=== PATIENT | female | born 1995 | race Caucasian/White ===

== ENCOUNTER 2016-04-18 12:06 | Observation (INO) | payer OTHER ==
[~2016-04-18] VITALS: Ht 157.5 cm; Wt 53.1 kg
[~2016-04-18 12:06] MED LIST: BUPR150T6 PO; HYDR25TA PO
[2016-04-18 13:07] LABS: BILIRUBIN,URINE NEGATIVE (NEG); GLUCOSE,URINE NEGATIVE (NEG); NITRITE,URINE NEGATIVE (NEG); PROTEIN,URINE NEGATIVE (NEG-TRACE)
[2016-04-18 13:18] LABS: NEG OBC UR NEG; POS OBC UR POS
[2016-04-18 13:22] LABS: BASO % 0 % (0-3); EOS % 0 % (0-3); HEMATOCRIT 40.8 % (36.0-47.0); LYMPH % 8 % (24-48); MEAN CORPUSCULAR HEMOGLOBIN 30 pg (25-35); MEAN CORPUSCULAR HGB CONC 34 g/dL (31-37); MEAN CORPUSCULAR VOLUME 88 fL (79-100); MONO % 3 % (0-9); NEUT % 89 % (31-73); PLATELET COUNT 166 x10^3/uL (140-400); RED BLOOD COUNT 4.62 x10^6/uL (3.50-5.40); WHITE BLOOD COUNT 13.1 x10^3/uL (4.0-11.0)
[2016-04-18] MEDS ORDERED: HYDROMORPHONE 2 MG/ML VIAL. IV PRN (13:30)
[2016-04-18 13:40] LABS: CALCIUM 9.2 mg/dL (8.5-10.1); CREATININE 0.5 mg/dL (0.6-1.0); GFR 157.3
[2016-04-18 13:41] LABS: POTASSIUM 3.4 mmol/L (3.5-5.1)
[2016-04-18 13:44] LABS: ALBUMIN 3.7 g/dL (3.4-5.0); DIRECT BILIRUBIN 0.1 mg/dL (0.0-0.2); TOTAL BILIRUBIN 0.6 mg/dL (0.2-1.0); TOTAL PROTEIN 7.6 g/dL (6.4-8.2)
[2016-04-18 13:44] LABS: BACTERIA,URINE MODERATE /HPF (0-FEW); RBC,URINE 0 /HPF (0-2); SQUAMOUS EPITHELIAL CELL,UR MOD /LPF
[2016-04-18] MEDS ORDERED: ONDANSETRON PF 4 MG/2 ML VIAL. IV ONE (13:45)
[2016-04-18] MEDS ORDERED: IV NORMAL SALINE 1000ML BAG 1,000 ML IV ONE (13:45)
--- NOTE | 2016-04-18 13:55 | RAD ---
Indication abdominal pain associated with . An early obstetrical ultrasound examination was performed. No prior ultrasound imaging is available. There is a single viable IUP. heart rate of 173 was documented. The crown-rump length of 3.7 cm is compatible with a gestational age of 10 weeks 4 days. By sonographic analysis the expected date of confinement is 11/10/2016. There is a small mass seen associated with the measuring maximally approximately 1.8 cm in greatest dimension most compatible with a small subchorionic hemorrhage. Both ovaries are identified and appeared unremarkable. IMPRESSION:: Single viable IUP of approximately 10 weeks 4 days gestation. There is a small subchorionic hemorrhage additionally noted associated with the
[2016-04-18 14:53] LABS: PLT ESTIMATE ADEQUATE (ADEQUATE)
[2016-04-18] MEDS ORDERED: IV NORMAL SALINE 1000ML BAG 1,000 ML IV SCH (14:58)
[2016-04-18] MEDS ORDERED: MORPHINE SULFATE 2 MG/ML DISP.SYRIN. IV PRN (15:00)
[2016-04-18] MEDS ORDERED: ONDANSETRON PF 4 MG/2 ML VIAL. IV PRN (15:00)
--- NOTE | 2016-04-18 16:09 | PHYS DOC ---
Past Medical History Past Medical History: Anxiety, Depression Past Surgical History: No Surgical History Alcohol Use: None Drug Use: None Adult General Chief Complaint Chief Complaint: ABDOMINAL PAIN IN HPI HPI 20 yo 10 wk F presenting to the ED with rlq abd pain for about 24 hours. she reports n/v with this as well. her pain is sharp nonradiating wihtout alleviating factors. she denies vaginal bleeding. she denies diarrhea. ROS neg for chest pain fevers chill or shortness of breath. All other review of systems is negative unless otherwise noted in history of present illness. Review of Systems Review of Systems SEE ABOVE. Current Medications Current Medications Current Medications Medications (Trade) Dose Ordered Sig/Janna Start Time Stop Time Status Last Admin Dose Admin Hydromorphone HCl (Dilaudid) 0.5 mg PRN Q1HR PRN 04/18/16 13:30 04/18/16 14:05 0.5 MG Ondansetron HCl 4 mg 4 mg 1X ONCE 04/18/16 13:45 04/18/16 13:46 DC 04/18/16 14:05 4 MG Sodium Chloride (Iv Sodium Chloride 0.9% 1000ml Bag) 1,000 ml @ 1,000 mls/hr 1X ONCE 04/18/16 13:45 04/18/16 14:44 DC 04/18/16 14:04 1,000 MLS/HR Allergies Allergies Allergies Coded Allergies Type Severity Reaction Last Updated Verified No Known Drug Allergies 05/29/14 No Physical Exam Physical Exam Constitutional: Well developed, well nourished, no acute distress, non-toxic appearance. HENT: Normocephalic, atraumatic, bilateral external ears normal, oropharynx moist, no oral exudates, nose normal. [] Eyes: PERRLA, EOMI, conjunctiva normal, no discharge. Neck: Normal range of motion, no tenderness, supple, no stridor. [] Cardiovascular:Heart rate regular rhythm, no murmur [] Lungs & Thorax: Bilateral breath sounds clear to auscultation [] Abdomen: Abdomen is soft with tenderness in the right lower quadrant. Positive McBurney's point. Negative Petersen sign. Skin: Warm, dry, no erythema, no rash. [] Back: No tenderness, no CVA tenderness. Extremities: No tenderness, no cyanosis, no clubbing, ROM intact, no edema. [] Neurologic: Alert and oriented X 3, normal motor function, normal sensory function, no focal deficits noted. [] Psychologic: Affect normal, judgement normal, mood normal. Current Patient Data Vital Signs Vital Signs Date Time Temp Pulse Resp B/P Pulse Ox O2 Delivery O2 Flow Rate FiO2 04/18/16 14:30 68 96/54 99 Room Air 04/18/16 14:05 22 04/18/16 12:40 97.7 97.7 Lab Values Laboratory Tests Test 04/18/16 12:45 04/18/16 13:05 Urine Collection Type Unknown Urine Color Yellow Urine Clarity Clear Urine pH 7.0 Urine Specific [place] >=1.030 Urine Protein Negativemg/dL (NEG-TRACE) Urine Glucose (UA) Negativemg/dL (NEG) Urine Ketones (Stick) 40mg/dL (NEG) Urine Blood Negative (NEG) Urine Nitrite Negative (NEG) Urine Bilirubin Negative (NEG) Urine Urobilinogen Dipstick 1.0mg/dL (0.2 mg/dL) Urine Leukocyte Esterase Trace (NEG) Urine RBC 0/HPF (0-2) Urine WBC 1-4/HPF (0-4) Urine Squamous Epithelial Cells Mod/LPF Urine Bacteria Moderate/HPF (0-FEW) Urine Mucus Mod/LPF Urine Test Positive (NEG) White Blood Count 13.1x10^3/uL (4.0-11.0) H Red Blood Count 4.62x10^6/uL (3.50-5.40) Hemoglobin 14.0g/dL (12.0-15.5) Hematocrit 40.8% (36.0-47.0) Mean Corpuscular Volume 88fL (79-100) Mean Corpuscular Hemoglobin 30pg (25-35) Mean Corpuscular Hemoglobin Concent 34g/dL (31-37) Red Cell Distribution Width 14.0% (11.5-14.5) Platelet Count 166x10^3/uL (140-400) Neutrophils (%) (Auto) 89% (31-73) H Lymphocytes (%) (Auto) 8% (24-48) L Monocytes (%) (Auto) 3% (0-9) Eosinophils (%) (Auto) 0% (0-3) Basophils (%) (Auto) 0% (0-3) Neutrophils # (Auto) 11.7x10^3uL (1.8-7.7) H Lymphocytes # (Auto) 1.0x10^3/uL (1.0-4.8) Monocytes # (Auto) 0.4x10^3/uL (0.0-1.1) Eosinophils # (Auto) 0.0x10^3/uL (0.0-0.7) Basophils # (Auto) 0.0x10^3/uL (0.0-0.2) Segmented Neutrophils % 89% (35-66) H Lymphocytes % 9% (24-48) L Monocytes % 2% (0-10) Platelet Estimate Adequate (ADEQUATE) Maternal Serum HCG Beta Subunit 06517qIO/mL (0-6) H Sodium Level 139mmol/L (136-145) Potassium Level 3.4mmol/L (3.5-5.1) L Chloride Level 105mmol/L (98-107) Carbon Dioxide Level 21mmol/L (21-32) Anion Gap 13 (6-14) Blood Urea Nitrogen 10mg/dL (7-20) Creatinine 0.5mg/dL (0.6-1.0) L Estimated GFR (Cockcroft-Gault) 157.3 Glucose Level 87mg/dL (70-99) Calcium Level 9.2mg/dL (8.5-10.1) Total Bilirubin 0.6mg/dL (0.2-1.0) Direct Bilirubin 0.1mg/dL (0.0-0.2) Aspartate Amino Transferase (AST) 18U/L (15-37) Alanine Aminotransferase (ALT) 22U/L (14-59) Alkaline Phosphatase 63U/L (46-116) Total Protein 7.6g/dL (6.4-8.2) Albumin 3.7g/dL (3.4-5.0) Lipase 118U/L (73-393) Laboratory Tests 04/18/16 13:05 Laboratory Tests 04/18/16 13:05 EKG EKG [] Radiology/Procedures Radiology/Procedures [] Course & Med Decision Making Course & Med Decision Making Pertinent Labs and Imaging studies reviewed. (See chart for details) [] 20-year-old female presenting to the emergency department approximately 10 weeks with right lower quadrant abdominal pain with nausea and vomiting. On examination the patient's abd was tender concerning for possible appendicitis. I discussed with Dr. Mckeon our OB and Dr. Maher our general surgeon who collectively recommended MRI abd without contrast and the pt was then admitted for Dr. Mckeon's service for further evaluation, workup and care. Dragon Disclaimer Dragon Disclaimer This electronic medical record was generated, in whole or in part, using a voice recognition dictation system. Departure Departure Impression: Primary Impression: Abdominal pain Disposition: ADMITTED INPATIENT Admitting Physician: Other (dr. Mckeon) Condition: STABLE Referrals: NO PCP (PCP) GOOD PRAKASH MD Apr 18, 2016 16:09
--- NOTE | 2016-04-18 16:23 | RAD ---
MR of the abdomen and pelvis without contrast, 04/18/2016: History: , right-sided pain and nausea, possible appendicitis Imaging of the mid abdomen through the pelvis was performed in axial, sagittal and coronal planes utilizing a variety of imaging sequences including T2 weighted and fat-suppressed T2 weighted sequences. The first trimester gravid uterus is visualized centered to the right of midline. No pelvic mass or abnormal fluid collection is seen. The cecum is in normal position in the anterior aspect of the mid to upper pelvis. The appendix is not definitely identified. No dilated appendix or pericecal inflammatory process is seen. No free fluid is evident in the abdomen or pelvis. The kidneys are unremarkable. IMPRESSION: No MR findings to suggest acute appendicitis.
[2016-04-18 17:00] VITALS: BP 92/52
[2016-04-18] MEDS ORDERED: ACETAMINOPHEN 325 MG TABLET. PO PRN (20:30)
[2016-04-18 23:00] VITALS: BP 97/54
[2016-04-19 05:30] VITALS: BP 96/50
[2016-04-19 05:46] LABS: BASO % 0 % (0-3); EOS % 0 % (0-3); HEMATOCRIT 34.1 % (36.0-47.0); HEMOGLOBIN 11.8 g/dL (12.0-15.5); LYMPH # 1.1 x10^3/uL (1.0-4.8); LYMPH % 15 % (24-48); MEAN CORPUSCULAR HEMOGLOBIN 31 pg (25-35); MEAN CORPUSCULAR HGB CONC 35 g/dL (31-37); MEAN CORPUSCULAR VOLUME 89 fL (79-100); MONO % 7 % (0-9); NEUT % 78 % (31-73); PLATELET COUNT 136 x10^3/uL (140-400); RED BLOOD COUNT 3.83 x10^6/uL (3.50-5.40); WHITE BLOOD COUNT 7.3 x10^3/uL (4.0-11.0)
[2016-04-19 06:05] LABS: CALCIUM 8.2 mg/dL (8.5-10.1); CREATININE 0.5 mg/dL (0.6-1.0); GFR 157.3; POTASSIUM 3.6 mmol/L (3.5-5.1)
--- NOTE | 2016-04-19 08:19 | PDOC2 ---
CONSULT Date of Consult Date of Consult DATE: 04/19/16 TIME: 08:14 Reason for Consult Reason for Consult: RLQ abdominal pain Identification/Chief Complaint Chief Complaint RLQ abdominal pain Source Source: Patient History of Present Illness Reason for Visit: 20 yo female admitted to the hospital with severe RLQ abdominal pain for 24 hours. She is 10 weeks preg. This am she is feeling better, no pain or nausea. MRI of the abd did not show any evidence of appendicitis. Past Medical History Cardiovascular: No pertinent hx Pulmonary: No pertinent hx GI: No pertinent hx Heme/Onc: No pertinent hx Hepatobiliary: No pertinent hx Psych: Anxiety, Depression Rheumatologic: No pertinent hx Infectious disease: No pertinent hx ENT: No pertinent hx Renal/: No pertinent hx Endocrine: No pertinent hx Past Surgical History Past Surgical History: No pertinent history Family History Family History: Hypertension Social History No ALCOHOL: occassional Drugs: Crystal meth Lives: with Family Current Problem List Problem List Problems Medical Problems: (1) Abdominal pain Status: Acute Current Medications Current Medications Current Medications Hydromorphone HCl (Dilaudid) 0.5 mg PRN Q1HR PRN IV SEVERE PAIN Last administered on 04/18/16 14:05; Start 04/18/16 at 13:30 Ondansetron HCl 4 mg 4 mg 1X ONCE IV Last administered on 04/18/16 14:05; Start 04/18/16 at 13:45; Stop 04/18/16 at 13:46; Status DC Sodium Chloride (Iv Sodium Chloride 0.9% 1000ml Bag) 1,000 ml @ 1,000 mls/hr 1X ONCE IV Last administered on 04/18/16 14:04; Start 04/18/16 at 13:45; Stop 04/18/16 at 14:44; Status DC Ondansetron HCl (Zofran) 4 mg PRN Q8HRS PRN IV NAUSEA/VOMITING; Start 04/18/16 at 15:00; Stop 04/19/16 at 14:59 Morphine Sulfate 2 mg 2 mg PRN Q2HR PRN IV PAIN; Start 04/18/16 at 15:00; Stop 04/19/16 at 14:59 Sodium Chloride (Iv Sodium Chloride 0.9% 1000ml Bag) 1,000 ml @ 125 mls/hr Q8H IV Last administered on 04/19/16 00:17; Start 04/18/16 at 14:58; Stop 04/19/16 at 14:57 Acetaminophen (Tylenol) 650 mg PRN Q4HRS PRN PO MILD PAIN / TEMP Last administered on 04/18/16t 20:51; Start 04/18/16 at 20:30 Active Scripts Active Reported Bupropion Xl (Bupropion Hcl) 150 Mg Tab.er.24h 1 Tab PO DAILY Allergies Allergies: Coded Allergies: No Known Drug Allergies (Unverified , 05/29/14) Physical Exam General: Alert, Oriented X3, Cooperative, No acute distress HEENT: Atraumatic Lungs: Clear to auscultation, Normal air movement Heart: Regular rate, No murmurs Abdomen: Normal bowel sounds, Soft, No tenderness Extremities: No edema Skin: No significant lesion Neuro: Normal speech Psych/Mental Status: Mental status NL Vitals VITALS Vital Signs Date Time Temp Pulse Resp B/P Pulse Ox O2 Delivery O2 Flow Rate FiO2 04/19/16 05:30 98.8 69 16 96/50 98.8 04/18/16 17:00 Room Air 04/18/16 15:00 97 Labs Labs Laboratory Tests Test 04/18/16 12:45 04/18/16 13:05 04/19/16 05:33 Urine Collection Type Unknown Urine Color Yellow Urine Clarity Clear Urine pH 7.0 Urine Specific [place] >=1.030 Urine Protein Negativemg/dL (NEG-TRACE) Urine Glucose (UA) Negativemg/dL (NEG) Urine Ketones (Stick) 40mg/dL (NEG) Urine Blood Negative (NEG) Urine Nitrite Negative (NEG) Urine Bilirubin Negative (NEG) Urine Urobilinogen Dipstick 1.0mg/dL (0.2 mg/dL) Urine Leukocyte Esterase Trace (NEG) Urine RBC 0/HPF (0-2) Urine WBC 1-4/HPF (0-4) Urine Squamous Epithelial Cells Mod/LPF Urine Bacteria Moderate/HPF (0-FEW) Urine Mucus Mod/LPF Urine Test Positive (NEG) White Blood Count 13.1x10^3/uL (4.0-11.0) 7.3x10^3/uL (4.0-11.0) Red Blood Count 4.62x10^6/uL (3.50-5.40) 3.83x10^6/uL (3.50-5.40) Hemoglobin 14.0g/dL (12.0-15.5) 11.8g/dL (12.0-15.5) Hematocrit 40.8% (36.0-47.0) 34.1% (36.0-47.0) Mean Corpuscular Volume 88fL (79-100) 89fL (79-100) Mean Corpuscular Hemoglobin 30pg (25-35) 31pg (25-35) Mean Corpuscular Hemoglobin Concent 34g/dL (31-37) 35g/dL (31-37) Red Cell Distribution Width 14.0% (11.5-14.5) 14.0% (11.5-14.5) Platelet Count 166x10^3/uL (140-400) 136x10^3/uL (140-400) Neutrophils (%) (Auto) 89% (31-73) 78% (31-73) Lymphocytes (%) (Auto) 8% (24-48) 15% (24-48) Monocytes (%) (Auto) 3% (0-9) 7% (0-9) Eosinophils (%) (Auto) 0% (0-3) 0% (0-3) Basophils (%) (Auto) 0% (0-3) 0% (0-3) Neutrophils # (Auto) 11.7x10^3uL (1.8-7.7) 5.8x10^3uL (1.8-7.7) Lymphocytes # (Auto) 1.0x10^3/uL (1.0-4.8) 1.1x10^3/uL (1.0-4.8) Monocytes # (Auto) 0.4x10^3/uL (0.0-1.1) 0.5x10^3/uL (0.0-1.1) Eosinophils # (Auto) 0.0x10^3/uL (0.0-0.7) 0.0x10^3/uL (0.0-0.7) Basophils # (Auto) 0.0x10^3/uL (0.0-0.2) 0.0x10^3/uL (0.0-0.2) Segmented Neutrophils % 89% (35-66) Lymphocytes % 9% (24-48) Monocytes % 2% (0-10) Platelet Estimate Adequate (ADEQUATE) Maternal Serum HCG Beta Subunit 55324gJA/mL (0-6) Sodium Level 139mmol/L (136-145) 135mmol/L (136-145) Potassium Level 3.4mmol/L (3.5-5.1) 3.6mmol/L (3.5-5.1) Chloride Level 105mmol/L (98-107) 107mmol/L (98-107) Carbon Dioxide Level 21mmol/L (21-32) 20mmol/L (21-32) Anion Gap 13 (6-14) 8 (6-14) Blood Urea Nitrogen 10mg/dL (7-20) 6mg/dL (7-20) Creatinine 0.5mg/dL (0.6-1.0) 0.5mg/dL (0.6-1.0) Estimated GFR (Cockcroft-Gault) 157.3 157.3 Glucose Level 87mg/dL (70-99) 88mg/dL (70-99) Calcium Level 9.2mg/dL (8.5-10.1) 8.2mg/dL (8.5-10.1) Total Bilirubin 0.6mg/dL (0.2-1.0) Direct Bilirubin 0.1mg/dL (0.0-0.2) Aspartate Amino Transf (AST/SGOT) 18U/L (15-37) Alanine Aminotransferase (ALT/SGPT) 22U/L (14-59) Alkaline Phosphatase 63U/L (46-116) Total Protein 7.6g/dL (6.4-8.2) Albumin 3.7g/dL (3.4-5.0) Lipase 118U/L (73-393) Laboratory Tests Test 04/18/16 12:45 04/18/16 13:05 04/19/16 05:33 Urine Collection Type Unknown Urine Color Yellow Urine Clarity Clear Urine pH 7.0 Urine Specific [place] >=1.030 Urine Protein Negativemg/dL (NEG-TRACE) Urine Glucose (UA) Negativemg/dL (NEG) Urine Ketones (Stick) 40mg/dL (NEG) Urine Blood Negative (NEG) Urine Nitrite Negative (NEG) Urine Bilirubin Negative (NEG) Urine Urobilinogen Dipstick 1.0mg/dL (0.2 mg/dL) Urine Leukocyte Esterase Trace (NEG) Urine RBC 0/HPF (0-2) Urine WBC 1-4/HPF (0-4) Urine Squamous Epithelial Cells Mod/LPF Urine Bacteria Moderate/HPF (0-FEW) Urine Mucus Mod/LPF Urine Test Positive (NEG) White Blood Count 13.1x10^3/uL (4.0-11.0) 7.3x10^3/uL (4.0-11.0) Red Blood Count 4.62x10^6/uL (3.50-5.40) 3.83x10^6/uL (3.50-5.40) Hemoglobin 14.0g/dL (12.0-15.5) 11.8g/dL (12.0-15.5) Hematocrit 40.8% (36.0-47.0) 34.1% (36.0-47.0) Mean Corpuscular Volume 88fL (79-100) 89fL (79-100) Mean Corpuscular Hemoglobin 30pg (25-35) 31pg (25-35) Mean Corpuscular Hemoglobin Concent 34g/dL (31-37) 35g/dL (31-37) Red Cell Distribution Width 14.0% (11.5-14.5) 14.0% (11.5-14.5) Platelet Count 166x10^3/uL (140-400) 136x10^3/uL (140-400) Neutrophils (%) (Auto) 89% (31-73) 78% (31-73) Lymphocytes (%) (Auto) 8% (24-48) 15% (24-48) Monocytes (%) (Auto) 3% (0-9) 7% (0-9) Eosinophils (%) (Auto) 0% (0-3) 0% (0-3) Basophils (%) (Auto) 0% (0-3) 0% (0-3) Neutrophils # (Auto) 11.7x10^3uL (1.8-7.7) 5.8x10^3uL (1.8-7.7) Lymphocytes # (Auto) 1.0x10^3/uL (1.0-4.8) 1.1x10^3/uL (1.0-4.8) Monocytes # (Auto) 0.4x10^3/uL (0.0-1.1) 0.5x10^3/uL (0.0-1.1) Eosinophils # (Auto) 0.0x10^3/uL (0.0-0.7) 0.0x10^3/uL (0.0-0.7) Basophils # (Auto) 0.0x10^3/uL (0.0-0.2) 0.0x10^3/uL (0.0-0.2) Segmented Neutrophils % 89% (35-66) Lymphocytes % 9% (24-48) Monocytes % 2% (0-10) Platelet Estimate Adequate (ADEQUATE) Maternal Serum HCG Beta Subunit 04346nRB/mL (0-6) Sodium Level 139mmol/L (136-145) 135mmol/L (136-145) Potassium Level 3.4mmol/L (3.5-5.1) 3.6mmol/L (3.5-5.1) Chloride Level 105mmol/L (98-107) 107mmol/L (98-107) Carbon Dioxide Level 21mmol/L (21-32) 20mmol/L (21-32) Anion Gap 13 (6-14) 8 (6-14) Blood Urea Nitrogen 10mg/dL (7-20) 6mg/dL (7-20) Creatinine 0.5mg/dL (0.6-1.0) 0.5mg/dL (0.6-1.0) Estimated GFR (Cockcroft-Gault) 157.3 157.3 Glucose Level 87mg/dL (70-99) 88mg/dL (70-99) Calcium Level 9.2mg/dL (8.5-10.1) 8.2mg/dL (8.5-10.1) Total Bilirubin 0.6mg/dL (0.2-1.0) Direct Bilirubin 0.1mg/dL (0.0-0.2) Aspartate Amino Transf (AST/SGOT) 18U/L (15-37) Alanine Aminotransferase (ALT/SGPT) 22U/L (14-59) Alkaline Phosphatase 63U/L (46-116) Total Protein 7.6g/dL (6.4-8.2) Albumin 3.7g/dL (3.4-5.0) Lipase 118U/L (73-393) Images Images MRI normal Assessment/Plan Assessment/Plan RLQ pain resolved Negative MRI for acute appendicitis Continued care per [employer] [facility] VIRGIL COSTELLO MD Apr 19, 2016 08:19
[2016-04-19 08:50] VITALS: BP 82/49
--- NOTE | 2016-04-19 10:38 | PDOC ---
SUBJECTIVE Subjective Patient able to eat Feeling better OBJECTIVE Objective Abdomen soft No pain Vital Signs Vital Signs Date Time Temp Pulse Resp B/P Pulse Ox O2 Delivery O2 Flow Rate FiO2 04/19/16 08:50 98.4 58 20 82/49 98.4 04/19/16 05:30 98.8 69 16 96/50 98.8 04/18/16 23:00 98.1 75 18 97/54 98.1 04/18/16 17:00 98.5 66 18 92/52 Room Air 98.5 04/18/16 15:00 72 91/50 97 Room Air 04/18/16 14:30 68 96/54 99 Room Air 04/18/16 14:28 Room Air 04/18/16 14:05 22 99 Room Air 04/18/16 14:00 68 93/52 100 Room Air 04/18/16 13:30 74 93/51 95 Room Air 04/18/16 13:00 74 119/53 100 Room Air 04/18/16 12:40 97.7 87 18 119/66 99 Room Air 97.7 I & O Intake and Output 04/19/16 07:00 Output Total 25 ml Balance -25 ml Output Emesis 25 ml PHYSICAL EXAM Physical Exam No fever No bleeding Feeling better ASSESSMENT/PLAN Assessment/Plan Patient likes to go home Will go to [facility] up Problems: COMMENT Lab Laboratory Tests Test 04/18/16 12:45 04/18/16 13:05 04/19/16 05:33 Urine Collection Type Unknown Urine Color Yellow Urine Clarity Clear Urine pH 7.0 Urine Specific [place] >=1.030 Urine Protein Negativemg/dL (NEG-TRACE) Urine Glucose (UA) Negativemg/dL (NEG) Urine Ketones (Stick) 40mg/dL (NEG) Urine Blood Negative (NEG) Urine Nitrite Negative (NEG) Urine Bilirubin Negative (NEG) Urine Urobilinogen Dipstick 1.0mg/dL (0.2 mg/dL) Urine Leukocyte Esterase Trace (NEG) Urine RBC 0/HPF (0-2) Urine WBC 1-4/HPF (0-4) Urine Squamous Epithelial Cells Mod/LPF Urine Bacteria Moderate/HPF (0-FEW) Urine Mucus Mod/LPF Urine Test Positive (NEG) White Blood Count 13.1x10^3/uL (4.0-11.0) 7.3x10^3/uL (4.0-11.0) Red Blood Count 4.62x10^6/uL (3.50-5.40) 3.83x10^6/uL (3.50-5.40) Hemoglobin 14.0g/dL (12.0-15.5) 11.8g/dL (12.0-15.5) Hematocrit 40.8% (36.0-47.0) 34.1% (36.0-47.0) Mean Corpuscular Volume 88fL (79-100) 89fL (79-100) Mean Corpuscular Hemoglobin 30pg (25-35) 31pg (25-35) Mean Corpuscular Hemoglobin Concent 34g/dL (31-37) 35g/dL (31-37) Red Cell Distribution Width 14.0% (11.5-14.5) 14.0% (11.5-14.5) Platelet Count 166x10^3/uL (140-400) 136x10^3/uL (140-400) Neutrophils (%) (Auto) 89% (31-73) 78% (31-73) Lymphocytes (%) (Auto) 8% (24-48) 15% (24-48) Monocytes (%) (Auto) 3% (0-9) 7% (0-9) Eosinophils (%) (Auto) 0% (0-3) 0% (0-3) Basophils (%) (Auto) 0% (0-3) 0% (0-3) Neutrophils # (Auto) 11.7x10^3uL (1.8-7.7) 5.8x10^3uL (1.8-7.7) Lymphocytes # (Auto) 1.0x10^3/uL (1.0-4.8) 1.1x10^3/uL (1.0-4.8) Monocytes # (Auto) 0.4x10^3/uL (0.0-1.1) 0.5x10^3/uL (0.0-1.1) Eosinophils # (Auto) 0.0x10^3/uL (0.0-0.7) 0.0x10^3/uL (0.0-0.7) Basophils # (Auto) 0.0x10^3/uL (0.0-0.2) 0.0x10^3/uL (0.0-0.2) Segmented Neutrophils % 89% (35-66) Lymphocytes % 9% (24-48) Monocytes % 2% (0-10) Platelet Estimate Adequate (ADEQUATE) Maternal Serum HCG Beta Subunit 88645uQG/mL (0-6) Sodium Level 139mmol/L (136-145) 135mmol/L (136-145) Potassium Level 3.4mmol/L (3.5-5.1) 3.6mmol/L (3.5-5.1) Chloride Level 105mmol/L (98-107) 107mmol/L (98-107) Carbon Dioxide Level 21mmol/L (21-32) 20mmol/L (21-32) Anion Gap 13 (6-14) 8 (6-14) Blood Urea Nitrogen 10mg/dL (7-20) 6mg/dL (7-20) Creatinine 0.5mg/dL (0.6-1.0) 0.5mg/dL (0.6-1.0) Estimated GFR (Cockcroft-Gault) 157.3 157.3 Glucose Level 87mg/dL (70-99) 88mg/dL (70-99) Calcium Level 9.2mg/dL (8.5-10.1) 8.2mg/dL (8.5-10.1) Total Bilirubin 0.6mg/dL (0.2-1.0) Direct Bilirubin 0.1mg/dL (0.0-0.2) Aspartate Amino Transf (AST/SGOT) 18U/L (15-37) Alanine Aminotransferase (ALT/SGPT) 22U/L (14-59) Alkaline Phosphatase 63U/L (46-116) Total Protein 7.6g/dL (6.4-8.2) Albumin 3.7g/dL (3.4-5.0) Lipase 118U/L (73-393) KARTIK COATS MD Apr 19, 2016 10:38
[2016-04-19 10:55] VITALS: BP 85/54
== END 2016-04-19 11:15 | disposition home or self-care (01) ==
LOC: ER 12:06 → INTOOBSV 14:53 → 3 SO LND 14:53
PROVIDERS: ADMIT Obstetrics & Gynecology; ATTEND Obstetrics & Gynecology
DX: O26.891 Other specified pregnancy related conditions, first trimester (principal); R10.31 Right lower quadrant pain; O20.9 Hemorrhage in early pregnancy, unspecified; O99.341 Other mental disorders complicating pregnancy, first trimester; F41.9 Anxiety disorder, unspecified; F32.9 Major depressive disorder, single episode, unspecified; Z3A.10 10 weeks gestation of pregnancy
CPT/HCPCS: 36415; 74181; 76801; 80048; 80076; 81001; 81025; 83690; 84702; 85007; 85027; 86900; 86901; 87086; 96361; 96374; 96375; 96376; G0378; G0379; J1170; J2405; J7030

== ENCOUNTER 2016-10-04 20:21 | Observation (INO) | payer OTHER ==
[2016-10-04] MEDS ORDERED: IV RINGERS,LACTATED 1000ML 1,000 ML IV SCH ×2 (20:43)
[2016-10-04 21:08] LABS: BILIRUBIN,URINE NEGATIVE (NEG); GLUCOSE,URINE 250 mg/dL (NEG); NITRITE,URINE NEGATIVE (NEG); PH,URINE 6.5; PROTEIN,URINE NEGATIVE (NEG-TRACE)
[2016-10-04 21:11] LABS: NEG OBC AMNIO NEG; POS OBC AMNIO POS
[2016-10-04 21:24] LABS: BACTERIA,URINE FEW /HPF (0-FEW); WBC,URINE OCC /HPF (0-4)
[2016-10-04 21:25] LABS: SQUAMOUS EPITHELIAL CELL,UR OCC /LPF
== END 2016-10-04 21:45 | disposition home or self-care (01) ==
LOC: 3 SO LND 20:21
PROVIDERS: ADMIT Obstetrics & Gynecology; ATTEND Obstetrics & Gynecology
DX: O42.913 Preterm premature rupture of membranes, unspecified as to length of time between rupture and onset of labor, third trimester (principal); Z3A.33 33 weeks gestation of pregnancy
CPT/HCPCS: 36415; 81001; 84112; G0378; G0379

== ENCOUNTER 2016-11-28 19:22 | Emergency (ER) | payer OTHER ==
[~2016-11-28] VITALS: Ht 157.5 cm; Wt 59.0 kg
[2016-11-28 19:45] VITALS: BP 132/86
[2016-11-28] MEDS ORDERED: METR500T PO (21:21)
[2016-11-28] MEDS ORDERED: ONDA4TAB10 SL (21:21)
--- NOTE | 2016-11-28 21:21 | PHYS DOC ---
Past Medical History Past Medical History: Anxiety, Depression Past Surgical History: No Surgical History Alcohol Use: Rarely Drug Use: None Adult General Chief Complaint Chief Complaint: ABDOMINAL PAIN HPI HPI Patient is a 20 year old female who presents with complaint of intermittent lower abdominal pain and vaginal bleeding. Patient states that she is 2 weeks from spontaneous vaginal delivery. Patient states that this was her first . The patient states that her bleeding has been light but persistent. Patient states that she has had dark brown bleeding and has had slight mucous discharge. Patient denies any associated fevers. Patient has had mild nausea but no vomiting and has been eating and drinking normal amounts at home. Patient follows with Dr. Garrison for [employer]. The patient has not taken any medications for her symptoms. Patient states that its worst, the patient has 8 out of 10 pain. Patient states over currently her pain is 4 out of 10. Patient states that it feels dull and cramping. Review of Systems Review of Systems Constitutional: Denies fever or chills [] Eyes: Denies change in visual acuity, redness, or eye pain [] HENT: Denies nasal congestion or sore throat [] Respiratory: Denies cough or shortness of breath [] Cardiovascular: Denies chest pain or edema[] GI: Lower abdominal pain, nausea, denies vomiting, bloody stools, or diarrhea[] : Vaginal bleeding[] Musculoskeletal: Denies back pain or joint pain [] Integument: Denies rash or skin lesions [] Neurologic: Denies headache, focal weakness or sensory changes [] Allergies Allergies Allergies Coded Allergies Type Severity Reaction Last Updated Verified No Known Drug Allergies 05/29/14 No Physical Exam Physical Exam Constitutional: Well developed, well nourished, no acute distress, non-toxic appearance. [] HENT: Normocephalic, atraumatic, bilateral external ears normal, oropharynx moist, no oral exudates, nose normal. [] Eyes: PERRLA, EOMI, conjunctiva normal, no discharge. [] Neck: Normal range of motion, no tenderness, supple, no stridor. [] Cardiovascular:Heart rate regular rhythm, no murmur [] Lungs & Thorax: Bilateral breath sounds clear to auscultation [] Abdomen: Bowel sounds normal, soft, no tenderness, no masses, no pulsatile masses. Pelvic: Offered but declined by patient[] Skin: Warm, dry, no erythema, no rash. [] Back: No tenderness, no CVA tenderness. [] Extremities: No tenderness, no cyanosis, no clubbing, ROM intact, no edema. [] Neurologic: Alert and oriented X 3, normal motor function, normal sensory function, no focal deficits noted. [] Current Patient Data Vital Signs Vital Signs Date Time Temp Pulse Resp B/P (MAP) Pulse Ox O2 Delivery O2 Flow Rate FiO2 11/28/16 19:45 98.6 85 18 132/86 (101) 97 Room Air 98.6 EKG EKG Not performed[] Radiology/Procedures Radiology/Procedures Not performed[] Course & Med Decision Making Course & Med Decision Making Pertinent Labs and Imaging studies reviewed. (See chart for details) Patient's vital signs are stable. The patient has minimal tenderness on abdominal exam. Patient declined pelvic exam in the emergency department. Patient's symptoms could be result of early endometritis versus continued bleeding within normal limits. Patient states that she has not contacted her [employer] for the symptoms. Patient will start on Flagyl therapy for treatment of possible endometritis. I advised patient to call her [employer] in the morning for follow-up in the next 2-3 days for reevaluation. Advised return emergency department for any worsening symptoms. Patient voiced understanding and in agreement with treatment plan. Dragon Disclaimer Dragon Disclaimer This electronic medical record was generated, in whole or in part, using a voice recognition dictation system. Departure Departure Impression: Primary Impression: Vaginal discharge Additional Impression: Vaginal bleeding Disposition: 01 HOME, SELF-CARE Condition: STABLE Referrals: MARISELA SANDOVAL (PCP) Patient Instructions: Care After Vaginal Delivery Additional Instructions: Follow-up with your [employer] in 2-3 days for reevaluation. Return to emergency department for any worsening symptoms. Scripts Ondansetron (ZOFRAN ODT) 4 Mg Tab.rapdis 1 TAB SL Q8HRS Y for NAUSEA/VOMITING, #15 TAB Prov: JEEVAN WORTHINGTON MD 11/28/16 Metronidazole (FLAGYL) 500 Mg Tablet 500 MG PO TID, #21 TAB Prov: JEEVAN WORTHINGTON MD 11/28/16 Problem Qualifiers JEEVAN WORTHINGTON MD Nov 28, 2016 21:21
== END 2016-11-28 21:30 | disposition home or self-care (01) ==
LOC: ER 19:22
DX: O72.1 Other immediate postpartum hemorrhage (principal); R11.2 Nausea with vomiting, unspecified; R10.30 Lower abdominal pain, unspecified
CPT/HCPCS: 99283

== ENCOUNTER 2017-04-14 19:12 | Emergency (ER) | payer OTHER ==
[2017-04-14 21:14] LABS: INFLUENZA A PATIENT NEGATIVE (NEGATIVE); INFLUENZA B PATIENT NEGATIVE (NEGATIVE); OBC FLU VALID
== END 2017-04-14 21:33 | disposition home or self-care (01) ==
LOC: ER 19:12
DX: J06.9 Acute upper respiratory infection, unspecified (principal); F41.9 Anxiety disorder, unspecified; F32.9 Major depressive disorder, single episode, unspecified
CPT/HCPCS: 87804; 87804-59; 99284

== ENCOUNTER 2018-03-04 19:08 | Emergency (ER) | payer OTHER ==
[~2018-03-04] VITALS: Ht 157.5 cm; Wt 68.0 kg
[2018-03-04 19:08] VITALS: BP 113/60
[~2018-03-04 19:08] MED LIST changes: +METR500T PO; +ONDA4TAB10 SL
[2018-03-04] MEDS ORDERED: HYDR-3164 PO (19:35)
--- NOTE | 2018-03-04 19:36 | PHYS DOC ---
Past Medical History Past Medical History: No Pertinent History, Anxiety, Depression Past Surgical History: No Surgical History Alcohol Use: Rarely Drug Use: None Adult General Chief Complaint Chief Complaint: DENTAL PROBLEM HPI HPI Patient is a 22 year old female who presents with left upper tooth pain for the last month but states it is getting worse. She states that she does have dental insurance that will start on March 13 of which time that she is planning on going to see a dentist. Denies fevers, nausea, vomiting, head pain. Patient rates her pain 8 out of 10. She states she is only been taking some Tylenol for the pain. Review of Systems Review of Systems Constitutional: Denies fever or chills [] Eyes: Denies change in visual acuity, redness, or eye pain [] HENT: Dental pain. Denies nasal congestion or sore throat [] Respiratory: Denies cough or shortness of breath [] Cardiovascular: No additional information not addressed in HPI [] GI: Denies abdominal pain, nausea, vomiting, bloody stools or diarrhea [] : Denies dysuria or hematuria [] Musculoskeletal: Denies back pain or joint pain [] Integument: Denies rash or skin lesions [] Neurologic: Denies headache, focal weakness or sensory changes [] All other systems were reviewed and found to be within normal limits, except as documented in this note. Allergies Allergies Allergies Coded Allergies Type Severity Reaction Last Updated Verified No Known Drug Allergies 05/29/14 No Physical Exam Physical Exam Constitutional: Well developed, well nourished, no acute distress, non-toxic appearance. [] HENT: Normocephalic, atraumatic, bilateral external ears normal, oropharynx moist, no oral exudates, nose normal. Dental caries[] Eyes: PERRLA, EOMI, conjunctiva normal, no discharge. [] Neck: Normal range of motion, no tenderness, supple, no stridor. [] Cardiovascular:Heart rate regular rhythm, no murmur [] Lungs & Thorax: Bilateral breath sounds clear to auscultation [] Abdomen: Bowel sounds normal, soft, no tenderness, no masses, no pulsatile masses. [] Skin: Warm, dry, no erythema, no rash. [] Back: No tenderness, no CVA tenderness. [] Extremities: No tenderness, no cyanosis, no clubbing, ROM intact, no edema. [] Neurologic: Alert and oriented X 3, normal motor function, normal sensory function, no focal deficits noted. [] Psychologic: Affect normal, judgement normal, mood normal. [] EKG EKG [] Radiology/Procedures Radiology/Procedures [] Course & Med Decision Making Course & Med Decision Making Patient is a 22 year old female who presents with left upper tooth pain for the last month but states it is getting worse. She states that she does have dental insurance that will start on March 13 of which time that she is planning on going to see a dentist. Denies fevers, nausea, vomiting, head pain. Patient rates her pain 8 out of 10. She states she is only been taking some Tylenol for the pain. Alert and oriented. Ambulatory. Skin is pink warm and dry. Mucus membranes moist. There is no facial swelling. Patient is given pain medications and told to use mouth wash after eating. Patient has 2 upper left sided teeth that have cavities but no broken teeth and gun line is not swollen or reddened. Patient is stable and is in no distress. Dragon Disclaimer Dragon Disclaimer This electronic medical record was generated, in whole or in part, using a voice recognition dictation system. Departure Departure Impression: Primary Impression: Dental caries Disposition: HOME, SELF-CARE Condition: STABLE Referrals: NO PCP (PCP) Patient Instructions: Dental Caries Additional Instructions: Follow up with a dentist as soon as possible. Scripts Hydrocodone/Apap 5-325 (NORCO 5-325 TABLET) 1 Each Tablet 1 TAB PO PRN Q6HRS PRN for PAIN, #15 TAB 0 Refills Prov: SEGUN RICH APRN 03/04/18 SEGUN RICH APRN Mar 04, 2018 19:35
[2018-03-04] MEDS ORDERED: HYDROcodone/APAP 5/325MG 1 TAB TABLET PO ONE (20:00)
== END 2018-03-04 20:12 | disposition home or self-care (01) ==
LOC: ER 19:08
DX: K02.9 Dental caries, unspecified (principal); K08.89 Other specified disorders of teeth and supporting structures
CPT/HCPCS: 99283

== ENCOUNTER 2018-03-13 18:45 | Emergency (ER) | payer OTHER ==
[~2018-03-13] VITALS: Ht 157.5 cm; Wt 63.5 kg
[~2018-03-13 18:45] MED LIST changes: +HYDR-3164 PO
[2018-03-13 19:15] VITALS: BP 109/57
--- NOTE | 2018-03-13 19:41 | PHYS DOC ---
Past Medical History Past Medical History: No Pertinent History Past Surgical History: No Surgical History Alcohol Use: None Drug Use: None Adult General Chief Complaint Chief Complaint: FLU SYMPTOM HPI HPI Patient is a 22 year old [f__sex] who presents with [] Review of Systems Review of Systems Constitutional: Denies fever or chills [] Eyes: Denies change in visual acuity, redness, or eye pain [] HENT: Denies nasal congestion or sore throat [] Respiratory: Denies cough or shortness of breath [] Cardiovascular: No additional information not addressed in HPI [] GI: Denies abdominal pain, nausea, vomiting, bloody stools or diarrhea [] : Denies dysuria or hematuria [] Musculoskeletal: Denies back pain or joint pain [] Integument: Denies rash or skin lesions [] Neurologic: Denies headache, focal weakness or sensory changes [] Endocrine: Denies polyuria or polydipsia [] All other systems were reviewed and found to be within normal limits, except as documented in this note. Allergies Allergies Allergies Coded Allergies Type Severity Reaction Last Updated Verified No Known Drug Allergies 05/29/14 No Physical Exam Physical Exam Constitutional: Well developed, well nourished, no acute distress, non-toxic appearance. [] HENT: Normocephalic, atraumatic, bilateral external ears normal, oropharynx moist, no oral exudates, nose normal. [] Eyes: PERRLA, EOMI, conjunctiva normal, no discharge. [] Neck: Normal range of motion, no tenderness, supple, no stridor. [] Cardiovascular:Heart rate regular rhythm, no murmur [] Lungs & Thorax: Bilateral breath sounds clear to auscultation [] Abdomen: Bowel sounds normal, soft, no tenderness, no masses, no pulsatile masses. [] Skin: Warm, dry, no erythema, no rash. [] Back: No tenderness, no CVA tenderness. [] Extremities: No tenderness, no cyanosis, no clubbing, ROM intact, no edema. [] Neurologic: Alert and oriented X 3, normal motor function, normal sensory function, no focal deficits noted. [] Psychologic: Affect normal, judgement normal, mood normal. [] Current Patient Data Vital Signs Vital Signs Date Time Temp Pulse Resp B/P (MAP) Pulse Ox O2 Delivery O2 Flow Rate FiO2 03/13/18 19:15 98.4 87 18 109/57 (74) 98 Room Air 98.4 EKG EKG [] Radiology/Procedures Radiology/Procedures [] Course & Med Decision Making Course & Med Decision Making Pertinent Labs and Imaging studies reviewed. (See chart for details) [] Dragon Disclaimer Dragon Disclaimer This electronic medical record was generated, in whole or in part, using a voice recognition dictation system. Departure Departure Impression: Primary Impression: URI (upper respiratory infection) Disposition: HOME, SELF-CARE Condition: STABLE Referrals: NO PCP (PCP) Patient Instructions: Upper Respiratory Infection, Adult Additional Instructions: You may take [id number] cough and cold medication for symptom relief. Follow-up with your primary care provider in one week if not improving or return to the emergency department if worsening. KRISTA ORTIZ APRN Mar 13, 2018 19:41
== END 2018-03-13 20:20 | disposition home or self-care (01) ==
LOC: ER 18:45
DX: J06.9 Acute upper respiratory infection, unspecified (principal)
CPT/HCPCS: 99281

== ENCOUNTER 2019-03-16 17:20 | Emergency (ER) | payer SELFPAY ==
[~2019-03-16] VITALS: Ht 157.5 cm; Wt 68.5 kg
[2019-03-16 17:37] LABS: BILIRUBIN,URINE NEGATIVE (NEG); CLARITY,URINE CLOUDY; COLOR,URINE YELLOW; NITRITE,URINE NEGATIVE (NEG); PROTEIN,URINE NEGATIVE (NEG-TRACE)
[2019-03-16 17:59] LABS: SQUAMOUS EPITHELIAL CELL,UR MANY /LPF
[2019-03-16 18:00] LABS: BACTERIA,URINE MANY /HPF (0-FEW); RBC,URINE RARE /HPF (0-2); WBC,URINE TNTC /HPF (0-4)
[2019-03-16] MEDS ORDERED: PROCHLORPERAZINE 10 MG/2 ML VIAL. IV ONE (18:00)
[2019-03-16] MEDS ORDERED: IV NORMAL SALINE 1000ML BAG 1,000 ML IV ONE (18:00)
[2019-03-16 18:01] LABS: BASO # 0.1 x10^3/uL (0.0-0.2); BASO % 1 % (0-3); EOS % 0 % (0-3); HEMATOCRIT 41.2 % (36.0-47.0); HEMOGLOBIN 14.4 g/dL (12.0-15.5); LYMPH # 1.5 x10^3/uL (1.0-4.8); LYMPH % 15 % (24-48); MEAN CORPUSCULAR HEMOGLOBIN 31 pg (25-35); MEAN CORPUSCULAR HGB CONC 35 g/dL (31-37); MEAN CORPUSCULAR VOLUME 88 fL (79-100); MONO # 0.6 x10^3/uL (0.0-1.1); MONO % 6 % (0-9); NEUT # 8.1 x10^3/uL (1.8-7.7); NEUT % 79 % (31-73); PLATELET COUNT 186 x10^3/uL (140-400); RED BLOOD COUNT 4.66 x10^6/uL (3.50-5.40); RED CELL DISTRIBUTION WIDTH 13.9 % (11.5-14.5); WHITE BLOOD COUNT 10.2 x10^3/uL (4.0-11.0)
[2019-03-16 18:17] LABS: CREATININE 0.4 mg/dL (0.6-1.0); GFR 197.8; POTASSIUM 4.2 mmol/L (3.5-5.1)
[2019-03-16 18:22] LABS: ALBUMIN 3.9 g/dL (3.4-5.0); ALBUMIN/GLOBULIN RATIO 1.1 (1.0-1.7); TOTAL BILIRUBIN 0.4 mg/dL (0.2-1.0); TOTAL PROTEIN 7.4 g/dL (6.4-8.2)
[2019-03-16] MEDS ORDERED: cefTRIAXone IV Push 1 GM VIAL. IVP ONE (18:45)
[2019-03-16 19:01] VITALS: BP 101/56
[2019-03-16] MEDS ORDERED: CEPH500T PO (19:32)
[2019-03-16] MEDS ORDERED: PROC10TA57 PO (19:32)
--- NOTE | 2019-03-16 19:32 | PHYS DOC ---
Past Medical History Past Medical History: No Pertinent History Past Surgical History: No Surgical History Alcohol Use: None Drug Use: None Adult General Chief Complaint Chief Complaint: VOMITING IN HPI HPI Patient is a 23 year old female 3 para 2 currently 8 weeks presenting to the ED today complaining of nausea and vomiting in that began yesterday, patient states she has tried taking Zofran with no relief. Denies any abdominal pain, denies any vaginal bleeding. She reports she was seen by the [facility] yesterday and had a confirmed IUP Review of Systems Review of Systems Constitutional: Denies fever or chills [] Eyes: Denies change in visual acuity, redness, or eye pain [] HENT: Denies nasal congestion or sore throat [] Respiratory: Denies cough or shortness of breath [] Cardiovascular: No additional information not addressed in HPI [] GI: Reports nausea and vomiting in , denies abdominal pain, bloody stools or diarrhea [] : Denies dysuria or hematuria [] Musculoskeletal: Denies back pain or joint pain [] Integument: Denies rash or skin lesions [] Neurologic: Denies headache, focal weakness or sensory changes [] All other systems were reviewed and found to be within normal limits, except as documented in this note. Current Medications Current Medications Current Medications Medications (Trade) Dose Ordered Sig/Janna Start Time Stop Time Status Last Admin Dose Admin Ceftriaxone Sodium (Rocephin) 1 gm 1X ONCE 03/16/19 18:45 03/16/19 18:46 DC 03/16/19 18:59 1 GM Prochlorperazine Edisylate (Compazine) 10 mg 1X ONCE 03/16/19 18:00 03/16/19 18:01 DC 03/16/19 18:09 10 MG Sodium Chloride 1,000 ml @ 1,000 mls/hr 1X ONCE 03/16/19 18:00 03/16/19 18:59 DC 03/16/19 18:08 1,000 MLS/HR Allergies Allergies Allergies Coded Allergies Type Severity Reaction Last Updated Verified No Known Drug Allergies 05/29/14 No Physical Exam Physical Exam Constitutional: Well developed, well nourished, no acute distress, non-toxic appearance. [] HENT: Normocephalic, atraumatic, bilateral external ears normal, oropharynx moist, no oral exudates, nose normal. [] Eyes: PERRLA, EOMI, conjunctiva normal, no discharge. [] Neck: Normal range of motion, no tenderness, supple, no stridor. [] Cardiovascular:Heart rate regular rhythm, no murmur [] Lungs & Thorax: Bilateral breath sounds clear to auscultation [] Abdomen: Bowel sounds normal, soft, no tenderness, no masses, no pulsatile masses. [] Skin: Warm, dry, no erythema, no rash. [] Back: No tenderness, no CVA tenderness. [] Extremities: No tenderness, no cyanosis, no clubbing, ROM intact, no edema. [] Neurologic: Alert and oriented X 3, normal motor function, normal sensory function, no focal deficits noted. [] Psychologic: Affect normal, judgement normal, mood normal. [] Current Patient Data Vital Signs Vital Signs Date Time Temp Pulse Resp B/P (MAP) Pulse Ox O2 Delivery O2 Flow Rate FiO2 03/16/19 17: 97.9 73 16 105/59 (74) 99 Room Air 97.9 Lab Values Laboratory Tests Test 03/16/19 17:24 03/16/19 17:29 03/16/19 17:50 Urine Collection Type Unknown Urine Color Yellow Urine Clarity Cloudy Urine pH 6.0 Urine Specific [place] >=1.030 Urine Protein Negative mg/dL (NEG-TRACE) Urine Glucose (UA) Negative mg/dL (NEG) Urine Ketones (Stick) Negative mg/dL (NEG) Urine Blood Negative (NEG) Urine Nitrite Negative (NEG) Urine Bilirubin Negative (NEG) Urine Urobilinogen Dipstick 1.0 mg/dL (0.2 mg/dL) Urine Leukocyte Esterase Large (NEG) Urine RBC Rare /HPF (0-2) Urine WBC Tntc /HPF (0-4) Urine Squamous Epithelial Cells Many /LPF Urine Bacteria Many /HPF (0-FEW) Urine Mucus Mod /LPF POC Urine HCG, Qualitative Hcg positive (Negative) White Blood Count 10.2 x10^3/uL (4.0-11.0) Red Blood Count 4.66 x10^6/uL (3.50-5.40) Hemoglobin 14.4 g/dL (12.0-15.5) Hematocrit 41.2 % (36.0-47.0) Mean Corpuscular Volume 88 fL (79-100) Mean Corpuscular Hemoglobin 31 pg (25-35) Mean Corpuscular Hemoglobin Concent 35 g/dL (31-37) Red Cell Distribution Width 13.9 % (11.5-14.5) Platelet Count 186 x10^3/uL (140-400) Neutrophils (%) (Auto) 79 % (31-73) H Lymphocytes (%) (Auto) 15 % (24-48) L Monocytes (%) (Auto) 6 % (0-9) Eosinophils (%) (Auto) 0 % (0-3) Basophils (%) (Auto) 1 % (0-3) Neutrophils # (Auto) 8.1 x10^3/uL (1.8-7.7) H Lymphocytes # (Auto) 1.5 x10^3/uL (1.0-4.8) Monocytes # (Auto) 0.6 x10^3/uL (0.0-1.1) Eosinophils # (Auto) 0.0 x10^3/uL (0.0-0.7) Basophils # (Auto) 0.1 x10^3/uL (0.0-0.2) Sodium Level 137 mmol/L (136-145) Potassium Level 4.2 mmol/L (3.5-5.1) Chloride Level 103 mmol/L (98-107) Carbon Dioxide Level 22 mmol/L (21-32) Anion Gap 12 (6-14) Blood Urea Nitrogen 8 mg/dL (7-20) Creatinine 0.4 mg/dL (0.6-1.0) L Estimated GFR (Cockcroft-Gault) 197.8 BUN/Creatinine Ratio 20 (6-20) Glucose Level 88 mg/dL (70-99) Calcium Level 9.0 mg/dL (8.5-10.1) Total Bilirubin 0.4 mg/dL (0.2-1.0) Aspartate Amino Transferase (AST) 25 U/L (15-37) Alanine Aminotransferase (ALT) 24 U/L (14-59) Alkaline Phosphatase 84 U/L (46-116) Total Protein 7.4 g/dL (6.4-8.2) Albumin 3.9 g/dL (3.4-5.0) Albumin/Globulin Ratio 1.1 (1.0-1.7) Laboratory Tests 03/16/19 17:50 Laboratory Tests 03/16/19 17:50 EKG EKG [] Radiology/Procedures Radiology/Procedures [] Course & Med Decision Making Course & Med Decision Making Pertinent Labs and Imaging studies reviewed. (See chart for details) This is a 23-year-old female patient 3 para 2 currently 8 weeks with complaints of nausea and vomiting in since yesterday. Has tried Zofran with no relief. Urine analysis is noted for UTI. CBC CMP would not acute findings. Patient was given Rocephin IV and Zosyn and IV fluids. She feels better. Discharged with Compazine and cephalexin. Follow-up with [facility] in the course of this week. Dragon Disclaimer Dragon Disclaimer This electronic medical record was generated, in whole or in part, using a voice recognition dictation system. Departure Departure Impression: Primary Impression: Urinary tract infection during Additional Impression: Nausea and vomiting during Disposition: HOME, SELF-CARE Condition: STABLE Referrals: NO PCP (PCP) Follow up with the [facility] next week Patient Instructions: Diet - Hyperemesis Gravidarum, - Urinary Tract Infection Additional Instructions: You were evaluated in the emergency room for nausea and vomiting in . We sent you home with Compazine, take it as needed for nausea vomiting. You also have urinary tract infection, take the prescribed antibiotics as ordered until completed. Follow-up with your own [facility] in the course of this week Scripts Prochlorperazine Maleate (Compazine) 10 Mg Tablet 1 TAB PO Q6HRS PRN for NAUSEA, #21 TAB 0 Refills Prov: CAITLYN BAUTISTA APRN 03/16/19 Cephalexin (CEPHALEXIN) 500 Mg Tablet 1 TAB PO BID, #14 TAB Prov: CAITLYN BAUTISTA APRN 03/16/19 Problem Qualifiers Primary Impression: Urinary tract infection during Trimester: first trimester Qualified Codes: O23.41 - Unspecified infection of urinary tract in , first trimester CAITLYN BAUTISTA APRN Mar 16, 2019 19:32
== END 2019-03-16 19:40 | disposition home or self-care (01) ==
LOC: ER 17:20
DX: O23.41 Unspecified infection of urinary tract in pregnancy, first trimester (principal); O21.9 Vomiting of pregnancy, unspecified; Z3A.08 8 weeks gestation of pregnancy
CPT/HCPCS: 36415; 80053; 81001; 81025; 85025; 87086; 96361; 96374; 96375; 99284; J0696; J0780; J7030